=== PATIENT | male | born 1985 | race Caucasian/White ===

== ENCOUNTER 2023-10-09 04:21 | Emergency (ER) | payer OTHER, SELFPAY ==
[2023-10-09 04:27] VITALS: BP 142/102; PULSE 65; RESP 20; TEMP 37.1; O2SAT 99; BMI 28.0
--- NOTE | 2023-10-09 04:34 | CRLHL7_ITS ---
For Patients: As a result of the Century Cures Act, medical imaging exams and procedure reports are released immediately into your electronic medical record. You may view this report before your referring provider. If you have questions, please contact your health care provider. INDICATION: Left lower quadrant abdominal pain. TECHNIQUE: CT abdomen and pelvis acquired with 95 cc Isovue 370 IV contrast. COMPARISON: None. FINDINGS: Lower chest: Unremarkable. Liver: Unremarkable. Normal in size and attenuation. No suspicious masses. Gallbladder and bile ducts: Unremarkable. No stones or inflammation. No biliary dilatation. Pancreas: Unremarkable. No mass or inflammation. Spleen: Unremarkable. Normal in size. No masses. Adrenal glands: Unremarkable. No nodules. Kidneys: 5 x 4 mm stone at the left ureterovesical junction causing moderate hydronephrosis. No other stones. GI tract: Unremarkable. Normal in caliber. No sign of mass or inflammation. Normal appendix. Vasculature: Abdominal aorta is normal in caliber. Mesenteric arteries are patent. Lymph nodes: No lymphadenopathy. Peritoneum/Abdominal Wall: Unremarkable. No sign of mass or infiltration. No free air or significant free fluid. Pelvis: Unremarkable. Bones: Unremarkable for age. IMPRESSION: 5 x 4 mm stone at the left UVJ causing moderate hydronephrosis. Please note that all CT scans at this facility use dose modulation, iterative reconstruction, and/or weight-based dosing when appropriate to reduce radiation dose to as low as reasonably achievable. Dictated by Kurtis Allred MD @ 10/09/2023 5:37:02 AM (Electronically Signed)
[2023-10-09] MEDS: HYDROmorphone 0.5 mg/0.5 ml inj IVP (04:49)
[2023-10-09] MEDS: ONDANSETRON 2 MG/ML inj 4 MG IVP (04:50)
[2023-10-09] MEDS: 0.9 % SODIUM CHLORIDE 1000 ml 1,000 ML IV (04:50)
[2023-10-09 04:52] LABS: Basophils Absolute Auto 0.01 K/uL (0.00-0.30); Basophils Percent Auto 0.1 % (0.0-3.0); Eosinophils Absolute Auto 0.04 K/uL (0.00-0.50); Eosinophils Percent Auto 0.6 % (0.0-7.0); Hematocrit 42.2 % (37.0-53.0); Hemoglobin* 14.5 gm/dL (13.5-17.5); Immature Granulocytes Abs Auto 0.01 K/uL (0.00-0.30); Immature Granulocytes Pct Auto 0.1 %; Lymphocytes Percent Auto 22.8 % (20-44); Mean Corpuscular HGB Conc 34 gm/dL (32-36); Mean Corpuscular Hemoglobin 29 pg (26-34); Mean Corpuscular Volume 84 fL (80-100); Monocytes Percent Auto 5.6 % (0.0-11.0); Neutrophils Absolute Auto 4.96 K/uL (1.7-7.0); Neutrophils Percent Auto 70.8 % (42.0-72.0); Platelet Count* 273 K/uL (140-440); Red Blood Count 5.04 m/uL (4.30-5.90); White Blood Count* 7.01 K/uL (4.50-11.00)
[2023-10-09 05:05] LABS: Chloride* 105 mmol/L (96-114)
[2023-10-09 05:06] LABS: Albumin* 4.9 g/dL (3.3-5.0); Potassium* 3.6 mmol/L (3.6-5.1); Sodium* 140 mmol/L (135-149)
[2023-10-09 05:08] LABS: Amylase* 79 U/L (18-89)
[2023-10-09 05:09] LABS: Alanine Aminotransferase* 36 U/L (4-50); Alkaline Phosphatase* 64 U/L (40-150); Anion Gap 13 mEq/L (7-15); Aspartate Amino Transferase* 26 U/L (12-35); Bilirubin Total* 0.6 mg/dL (0.1-1.5); Blood Urea Nitrogen* 13 mg/dL (5-24); Carbon Dioxide* 22 mmol/L (20-32); Creatinine* 1.1 mg/dL (0.5-1.5); Est. Creatinine Clearance* 93.09; Estimated Glomerular Filt Rate 88 ml/min; Glucose* 178 mg/dL (60-115); Total Protein* 7.6 g/dL (6.0-8.3)
[2023-10-09 05:10] LABS: Calcium* 9.6 mg/dL (8.4-10.6)
--- NOTE | 2023-10-09 05:55 | ED.ABDPAIN ---
HPI - Abdominal Pain General Chief Complaint: Flank Pain Stated Complaint: abdominal and groin pain Time Seen by Provider: 10/09/23 04:32 History of Present Illness HPI narrative: Patient is a 38-year-old gentleman who comes in with severe pain in the left flank. He had similar episode of flank pain approximately 3 weeks ago. He has had no hematuria. He has had nausea due to the severity of his pain tonight. He has had no fevers no chills no night sweats. He has had no other significant symptoms and otherwise been feeling well. He does take Adderall but no other medications has no chronic medical issues. Related Data Home Medications Medication Instructions Recorded Confirmed dextroamphetamine-amphetamine 5 mg 2.5 mg PO DAILY 10/09/23 10/09/23 tablet (Adderall) Previous Rx's Medication Instructions Recorded tamsulosin 0.4 mg capsule (Flomax) 0.4 mg PO DAILY #14 caps 10/09/23 Allergies Allergy/AdvReac Type Severity Reaction Status Date / Time No Known Drug Allergies Allergy Verified 10/09/23 04:42 Review of Systems Status of ROS Reports: 10 or more systems reviewed and unremarkable except as noted in History and below [facility] Social History Non-prescribed substance use: denies use Exam Narrative: Exam Narrative: EXAM GENERAL: Patient appears very uncomfortable. EYES: No scleral icterus. LYMPH: No supraclavicular or cervical lymphadenopathy. SKIN: Visible skin seen during exam normal or with benign process only. EXT: No dependent lower extremity pedal edema. HEART: Regular rate and rhythm with no murmurs, rubs, or gallops. LUNGS: Clear to auscultation bilaterally with no crackles or wheezes. ABD: Soft, non tender, non distended. PSYCH: Good eye contact, speech is not pressured. Const: Vital Signs, click to edit/add: Vital Signs - 24 hr 10/09/23 04:27 Temperature 98.8 F Pulse Rate [Pulse Oximeter] 65 Respiratory Rate 20 Blood Pressure [Ri ght Upper Arm] 142/102 H Pulse Oximetry 99 Oxygen Delivery Me thod Room Air Course Vital Signs Vital signs: Initial Vital Signs Temperature 98.8 F 10/09/23 04:27 Temperature Source Temporal Artery Scan 10/09/23 04:27 Pulse Rate 65 10/09/23 04:27 Pulse Strength 3+ Normal 10/09/23 04:27 Respiratory Rate 20 10/09/23 04:27 Blood Pressure 142/102 H 10/09/23 04:27 Blood Pressure Mean 115 H 10/09/23 04:27 Blood Pressure Position Standing 10/09/23 04:27 Pulse Oximetry 99 10/09/23 04:27 Oxygen Delivery Method Room Air 10/09/23 04:27 Vital Signs Temperature 98.8 F 10/09/23 04:27 Pulse Rate 65 10/09/23 04:27 Respiratory Rate 20 10/09/23 04:27 Blood Pressure 142/102 H 10/09/23 04:27 Pulse Oximetry 99 10/09/23 04:27 Oxygen Delivery Method Room Air 10/09/23 04:27 Temperature 98.8 F 10/09/23 04:27 Pulse Rate 65 10/09/23 04:27 Respiratory Rate 20 10/09/23 04:27 Blood Pressure 142/102 H 10/09/23 04:27 Pulse Oximetry 99 10/09/23 04:27 Oxygen Delivery Method Room Air 10/09/23 04:27 Medications Administered Medications: Generic Name Dose Route Start Last Admin Trade Name Freq PRN Reason Stop Dose Admin Ondansetron HCl 4 mg 10/09/23 04:34 10/09/23 04:50 Ondansetron 2 Mg/Ml Inj IVP 4 mg ONCE PRN Administration Discontinued Medications Generic Name Dose Route Start Last Admin Trade Name Freq PRN Reason Stop Dose Admin Hydromorphone HCl 0.5 mg 10/09/23 04:34 10/09/23 04:49 Hydromorphone 0.5 Mg/0.5 Ml Inj IVP 10/09/23 04:35 0.5 mg ONCE ONE Administration Sodium Chloride 1,000 mls @ 1,000 mls/hr 10/09/23 04:35 10/09/23 04:50 0.9 % Sodium Chloride 1000 Ml IV 10/09/23 05:34 1,000 mls/hr .Q1H EDUARD Administration MDM - Abdominal Pain MDM Narrative Medical decision making narrative: Patient is a 38-year-old gentleman comes in with severe abdominal pain. Laboratory studies are reassuring but CT of the abdomen pelvis shows a 5 x 4 stone at the left UVJ. I did give him a L of normal saline 0.5 of Dilaudid 4 mg of Zofran with resolution of his symptoms. This time will treat him with Flomax [id number] pain medication in the future on a p.r.n. basis. Will send home with a stone collection kit and have follow-up with his primary physician. Differential Diagnosis Differential diagnosis: Likely abdominal pain, acute appendicitis, calculus of kidney, constipation, diverticulitis, gastroenteritis, pancreatitis and small bowel obstruction Lab Data Labs: Lab Results 10/09/23 Range/Units 04:40 Sodium 140 (135-149) mmol/L Potassium 3.6 (3.6-5.1) mmol/L Chloride 105 (96-114) mmol/L Carbon Dioxide 22 (20-32) mmol/L Anion Gap 13 (7-15) mEq/L BUN 13 (5-24) mg/dL Creatinine 1.1 (0.5-1.5) mg/dL Estimated Creat Clear 93.09 Estimated GFR 88 ml/min Glucose 178 H (60-115) mg/dL Calcium 9.6 (8.4-10.6) mg/dL Total Bilirubin 0.6 (0.1-1.5) mg/dL AST 26 (12-35) U/L ALT 36 (4-50) U/L Alkaline Phosphatase 64 (40-150) U/L Total Protein 7.6 (6.0-8.3) g/dL Albumin 4.9 (3.3-5.0) g/dL Amylase 79 (18-89) U/L Discharge Plan Discharge Clinical Impression: Kidney stone Patient Disposition: Home, Self-Care Condition: Stable Instructions: Kidney Stones (ED) Additional Instructions: Tylenol Motrin Flomax Screen urine Follow-up with your doctor Activity Level: No Restrictions Discharge Diet: Regular Prescriptions: New tamsulosin [Flomax] 0.4 mg capsule 0.4 mg PO DAILY Qty: 14 3RF No Action dextroamphetamine-amphetamine [Adderall] 5 mg tablet 2.5 mg PO DAILY Follow Up/Referrals: Talia Winter MD [Primary Care Provider] - Stand Alone Forms: [employer] Info Instructions
[2023-10-09 06:11] LABS: Appearance Urine Clear (Clear); Bilirubin Urine Negative (Negative); Blood Urine 3+ (Negative); Color Urine Yellow (Yellow); Glucose Urine Negative (Negative); Ketones Urine Negative (Negative); Leukocyte Esterase Urine Negative (Negative); Nitrite Urine Negative (Negative); Protein Urine Negative (Negative); Urobilinogen Urine 0.2 (0.2-1.0)
--- NOTE | 2023-10-09 06:11 | ED.NURSE ---
patient sent home with urine collection kit (urinal, urine screen, and urine cup) patient verbalized understanding of straining urine as well as discharge instructions.
[2023-10-09 06:17] LABS: Slide Review Reflex No
[2023-10-09 06:40] LABS: WBC Urine 0-2 (0-5)
[2023-10-09 06:41] LABS: Bacteria Urine Few
== END 2023-10-09 06:37 | disposition home or self-care (01) ==
PROVIDERS: Emergency Provider Internal Medicine; PCP Family Medicine
DX: N20.0 Calculus of kidney (principal)
CPT/HCPCS: 36415; 74177; 80053; 81003; 81015; 82150; 85025; 87086; 96374; 96375; 99283; 99284; J1170; J2405; J7030; Q9967